=== PATIENT | female | born 1960 | race Caucasian/White ===

== ENCOUNTER → 2017-08-31 | Outpatient (CLI) | payer OTHER ==
[~2017-08-31] MED LIST: ALBU0.63 NEB; ASPI-496 PO; AZEL50GE5 EXT; BECL8.7A7 INH; BUDE10.2 INH; CETI10CA PO; CHOL20002 PO; CODE30TA3 PO; FLUT16SP2 NAS; FLUT1DIS3 INH; LANS15CA60 PO; MONT10TA6 PO; NYST1000 PO; PANT40TA5 PO; PRED10TA14 PO; PRED20TA PO; ROSU5TAB PO; TAMO20TA PO; TRET15GE2 EXT; [UNRECOGNIZED DRUG - CODE] EXT
== END | disposition home or self-care (01) ==
LOC: CFH 07:53
PROVIDERS: ATTEND Internal Medicine Hematology & Oncology
DX: Z12.31 Encounter for screening mammogram for malignant neoplasm of breast (principal); Z13.820 Encounter for screening for osteoporosis; M81.0 Age-related osteoporosis without current pathological fracture; Z92.3 Personal history of irradiation; Z85.3 Personal history of malignant neoplasm of breast; Z78.0 Asymptomatic menopausal state
CPT/HCPCS: 77080; 77067

== ENCOUNTER → 2017-09-09 | Outpatient (CLI) | payer OTHER | END | disposition home or self-care (01) | LOC: CFH 12:03 | PROVIDERS: ATTEND Internal Medicine Hematology & Oncology | DX: R92.0 Mammographic microcalcification found on diagnostic imaging of breast (principal); Z85.3 Personal history of malignant neoplasm of breast | CPT/HCPCS: 77065 ==

== ENCOUNTER → 2017-09-29 | Outpatient (CLI) | payer OTHER ==
[~2017-09-29] MED LIST changes: +LIDOCAINE 1%, 20ML ONE
== END ==
LOC: CFH 07:06
PROVIDERS: ATTEND Internal Medicine Hematology & Oncology
DX: D05.02 Lobular carcinoma in situ of left breast (principal); Z85.3 Personal history of malignant neoplasm of breast; Z92.3 Personal history of irradiation
CPT/HCPCS: 19081; 77065; 88305; J3490

== ENCOUNTER → 2017-10-20 | Outpatient (CLI) | payer OTHER ==
[~2017-10-20] MED LIST changes: +GADOBUTROL 10 MMOL/10 ML VIAL ONE; -LIDOCAINE 1%, 20ML ONE
== END | disposition home or self-care (01) ==
LOC: CFH 08:34
PROVIDERS: ATTEND Internal Medicine Hematology & Oncology
DX: N63.42 Unspecified lump in left breast, subareolar (principal); N63.22 Unspecified lump in the left breast, upper inner quadrant; N63.21 Unspecified lump in the left breast, upper outer quadrant; Z85.3 Personal history of malignant neoplasm of breast
CPT/HCPCS: A9585; C8908

== ENCOUNTER → 2018-01-26 | Outpatient (CLI) | payer OTHER ==
[~2018-01-26] MED LIST changes: -GADOBUTROL 10 MMOL/10 ML VIAL ONE
== END | disposition home or self-care (01) ==
LOC: PETCFH 07:42
PROVIDERS: ATTEND Internal Medicine Hematology & Oncology
DX: C50.412 Malignant neoplasm of upper-outer quadrant of left female breast (principal); R92.2 Inconclusive mammogram; J84.10 Pulmonary fibrosis, unspecified
CPT/HCPCS: 78815; A9552

== ENCOUNTER → 2018-09-08 | Outpatient (CLI) | payer OTHER ==
[~2018-09-08] MED LIST changes: -CHOL20002 PO; +CHOL200052 PO
== END | disposition home or self-care (01) ==
LOC: CFH 08:30
PROVIDERS: ATTEND Internal Medicine
DX: D17.1 Benign lipomatous neoplasm of skin and subcutaneous tissue of trunk (principal)
CPT/HCPCS: 76705